=== PATIENT | female | born 1955 | race Caucasian/White ===

== ENCOUNTER → 2017-02-28 | Outpatient (CLI) | payer MEDICARE ==
[~2017-02-28] MED LIST: ATOR40TA PO; CPR500T PO; CYCL10TA9 PO; DICL75TA2 PO; DOCU100C37 PO; DOXY100C2 PO; EST30C VG; ESTR1TAB24 PO; GABA-488 PO; GABA600T2 PO; GABA800T2 PO; GLIP10TA23 PO; HYDR-3583 PO; INSU100I23 SQ; LEVE1U SQ; LISI1TAB6 PO; LOVA20TA2 PO; METF-380 PO; OMEP20TA2 PO; ORPH100T PO; OXYC-12 PO; OXYC-465 PO; PGLT30T PO; PREG150C PO; RABE20TA PO; SULF1TAB38 PO; TRAM100T2 PO; TRAM50TA2 PO
--- NOTE | 2017-03-01 10:52 | Diagnostic Imaging Report ---
Bilateral screening mammogram The current study was also evaluated with a Computer Aided Detection (CAD) system. Indication: Screening. No current complaints stated on the questionnaire. COMPARISON: 09/04/15 FINDINGS: The breasts are composed of scattered fibroglandular densities. There are scattered benign-appearing calcifications. Allowing for technique and positional differences, no suspicious change is seen. IMPRESSION: No significant change. ACR BI-RADS Category 2: Benign findings. Result letter will be mailed to the patient. Note: At least 10% of breast cancer is not imaged by mammography. Dictated by: Dictated on workstation # [id number]
== END ==
LOC: RAD 10:55
PROVIDERS: ATTEND Nurse Practitioner Family
DX: Z12.31 Encounter for screening mammogram for malignant neoplasm of breast (principal)
CPT/HCPCS: 77067

== ENCOUNTER 2017-03-24 05:56 | Outpatient (CLI) | payer MEDICARE ==
[~2017-03-24] VITALS: Ht 158.8 cm; Wt 92.1 kg
[2017-03-24] MEDS ORDERED: CYCL7.5T27 PO (13:49)
== END 2017-03-24 13:52 ==
LOC: PREOP 05:56
PROVIDERS: ATTEND Surgery
DX: Z01.818 Encounter for other preprocedural examination (principal); R11.0 Nausea; Z86.010 Personal history of colon polyps

== ENCOUNTER 2017-03-29 08:45 | Day surgery (SDC) | payer MEDICARE ==
[~2017-03-29] VITALS: Ht 158.8 cm; Wt 92.1 kg
[~2017-03-29 08:45] MED LIST changes: +CYCL7.5T27 PO
[2017-03-29] MEDS ORDERED: NS IV 1000 ML 1,000 ML IV STA (08:55)
[2017-03-29] MEDS ORDERED: NALOXONE 0.4 MG/ML 1 ML (NARCAN) VIAL IVP PRN (09:00)
[2017-03-29] MEDS ORDERED: FLUMAZENIL (ROMAZICON) 0.1 MG/ML 5 ML VIAL INJ PRN (09:00)
[2017-03-29 09:08] VITALS: BP 134/76
[2017-03-29] MEDS ORDERED: GLYCOPYRROLATE 0.2 MG/ML (ROBINUL) 2 ML VIAL ONE (09:08)
--- NOTE | 2017-03-29 09:19 | Progress Note-Pre Operative ---
Pre-Operative Progress Note H&P Reviewed The H&P was reviewed, patient examined and no changes noted. Date Seen by Provider: Mar 29, 2017 Time Seen by Provider: :18 Date H&P Reviewed: Mar 29, 2017 Time H&P Reviewed: :18 Pre-Operative Diagnosis: nausea, hiatal hernia, history of polyps AMISH GLEZ DO Mar 29, 2017 9:19 am
[2017-03-29] MEDS ORDERED: OMEG300C3 PO (09:35)
[2017-03-29] MEDS ORDERED: ALLERGY MED (09:35)
[2017-03-29] MEDS ORDERED: VIT D3 (09:35)
[2017-03-29] MEDS ORDERED: fentaNYL INJECTION 100 MCG/2 ML AMP ONE (09:40)
[2017-03-29] MEDS ORDERED: proPOfol 200 MG/20 ML (DIPRIVAN) VIAL IV ONE (09:40)
[2017-03-29] MEDS ORDERED: ESMOLOL 100 MG/10 ML (BREVIBLOC) VIAL ONE (10:02)
[2017-03-29] MEDS ORDERED: PANT40TA2 PO (10:37)
--- NOTE | 2017-03-29 10:37 | Progress Note-Post Operative ---
Post-Operative Progess Note Surgeon (s)/Equipment Operat0R (s) Surgeon AMISH GLEZ DO Equipment Operat0R: na Pre-Operative Diagnosis nausea, hiatal hernia, history of polyps Post-Operative Diagnosis gastritis, rectal polyps Procedure & Operative Findings Date of Procedure 03/29/17 Procedure Performed/Findings egd c biopsies, colonoscopy with hot bx polypectomy x 2 rectal Anesthesia Type per [employer] Estimated Blood Loss Estimated blood loss (mL): none Specimens/Packing Specimens Removed antrum, body stomach, rectal polyp x 2 AMISH GLEZ DO Mar 29, 2017 10:37 am
--- NOTE | 2017-03-29 10:40 | Discharge Inst-Simple/Standard ---
Discharge Inst-Standard Patient Instructions/Follow Up Plan of Care/Instructions/FU: Follow up with Dr. Menendez in 2 weeks WIll need repeat colonoscopy in 3 years or sooner if changes to current condition Take medication as directed. Hold on NSAIDS Activity as Tolerated: Yes Discharge Diet: No Restrictions LELAND GALLO APRN Mar 29, 2017 10:40
[2017-03-29 11:00] VITALS: BP 133/75
[2017-03-29 11:25] VITALS: BP 134/78
[2017-03-29 11:37] VITALS: BP 134/78
--- NOTE | 2017-03-29 16:05 | OPERATIVE REPORT ---
DATE OF SERVICE: 03/29/2017 PREOPERATIVE DIAGNOSES: Nausea, hiatal hernia and history of polyps. POSTOPERATIVE DIAGNOSES: Gastritis and rectal polyps. PROCEDURE: EGD with biopsies and colonoscopy with hot biopsy polypectomy x2 rectal. SURGEON: Amish Mneendez DO ANESTHESIA: Per MDA. ESTIMATED BLOOD LOSS: None. COMPLICATIONS: None. SPECIMENS: The antrum and body of stomach and rectal polyp x2. INDICATIONS: The patient is a 61-year-old female who has daily nausea. She also has history of colon polyps. She understands risks and benefits of procedures and wished to proceed with procedures. Consent was signed and in the chart. DESCRIPTION OF PROCEDURE: The patient was taken to the endoscopy suite, placed in left lateral recumbent position. Timeout was performed. Scope was inserted in mouth, down the esophagus, stomach and into the duodenum without difficulty. There were no polyps, masses or ulcerations within the duodenum. The scope was slowly retracted back into the stomach, where there were some erythematous changes and also some of the mucosa surface changes, which biopsies were obtained of the antrum and of the stomach of the body. Scope was retroflexed, noting no significant hiatal hernia. There were no polyps, masses or ulcerations. Scope was returned to its normal position, slowly withdrawn to the distal esophagus. There were no polyps, masses or ulcerations. The scope was slowly retracted back until completely removed, noting no other pathology. Digital rectal exam was performed and there were no palpable polyps, masses or ulcerations. Scope was then inserted in the rectum and advanced all the way to the cecum with minimal difficulty. Prep was adequate. Scope was then slowly retracted back. There were no polyps, masses or ulcerations in the cecum and ascending colon. Within the hepatic flexure, there was a small colonic lipoma present, smooth mucosa present. Scope was then continued slowly retracted back. There were no polyps, masses or ulcerations within the transverse colon, descending colon and sigmoid colon. In the rectum, there were 2 small polyps which hot biopsy polypectomy was performed. Scope was also retroflexed, noting no other pathology. Scope was returned to its normal position, slowly withdrawn until completely removed. RECOMMENDATIONS: Recommend following up in the office to go over pathology in 2-3 weeks. We will start the patient on Protonix and stop her omeprazole and diclofenac. Would avoid any NSAIDs. Would repeat colonoscopy in 3 years for reevaluation due to the colon polyps. If she has any problems prior to that, she should be reevaluated at that time. Job ID: [id number] DocumentID: [id number] Dictated Date: 03/29/2017 10:41:01 Drug Worker Date: 03/29/2017 16:04:26 Dictated By: AMISH MENENDEZ DO
== END 2017-03-29 11:35 | disposition home or self-care (01) ==
LOC: SDC 08:45
PROVIDERS: ATTEND Surgery
DX: Z12.11 Encounter for screening for malignant neoplasm of colon (principal); K62.1 Rectal polyp; K29.70 Gastritis, unspecified, without bleeding; D17.5 Benign lipomatous neoplasm of intra-abdominal organs; Z86.010 Personal history of colon polyps; E11.9 Type 2 diabetes mellitus without complications; I10 Essential (primary) hypertension; F17.210 Nicotine dependence, cigarettes, uncomplicated; Z79.4 Long term (current) use of insulin
CPT/HCPCS: 82962; 88305

== ENCOUNTER → 2019-10-19 | Outpatient (CLI) | payer MEDICARE ==
[~2019-10-19] MED LIST changes: +ALLERGY MED; -GABA600T2 PO; +GABA800T10 PO; -GABA800T2 PO; +GBPN600T PO; +OMEG300C3 PO; +PANT40TA2 PO; +VIT D3
[2019-10-19 13:26] LABS: BASOPHILS % (AUTO) 0 % (0-10); EOSINOPHILS # (AUTO) 0.3 10^3/uL (0.0-0.3); EOSINOPHILS % (AUTO) 4 % (0-10); HEMATOCRIT 36 % (35-52); HEMOGLOBIN 12.4 G/DL (11.5-16.0); LYMPHOCYTES % (AUTO) 29 % (12-44); MEAN CORPUSCULAR HEMOGLOBIN 29 PG (25-34); MEAN CORPUSCULAR HGB CONC 34 G/DL (32-36); MEAN CORPUSCULAR VOLUME 85 FL (80-99); MEAN PLATELET VOLUME 8.8 FL (7.4-10.4); MONOCYTES # (AUTO) 0.7 X 10^3 (0.0-1.0); MONOCYTES % (AUTO) 10 % (0-12); NEUTROPHILS # (AUTO) 3.9 X 10^3 (1.8-7.8); NEUTROPHILS % (AUTO) 57 % (42-75); PLATELET COUNT 236 10^3/uL (130-400); RED CELL DISTRIBUTION WIDTH 15.4 % (10.0-14.5)
[2019-10-19 13:47] LABS: ALANINE AMINOTRANSFERASE 24 U/L (0-55); ALKALINE PHOSPHATASE 76 U/L (40-136); BILIRUBIN,TOTAL 0.3 MG/DL (0.1-1.0); BUN/CREATININE RATIO 24; CALCIUM 9.3 MG/DL (8.5-10.1); CARBON DIOXIDE 19 MMOL/L (21-32); CHLORIDE 105 MMOL/L (98-107); CREATININE SERUM 0.72 MG/DL (0.60-1.30); GFR ESTIMATED > 60; GLUCOSE 213 MG/DL (70-105); POTASSIUM 4.7 MMOL/L (3.6-5.0); SODIUM 137 MMOL/L (135-145); TOTAL PROTEIN 6.2 GM/DL (6.4-8.2)
[2019-10-19 13:58] LABS: ANISOCYTOSIS SLIGHT; BAND NEUTROPHILS 2 %; BASOPHILS % (MANUAL) 0 %; EOSINOPHILS % (MANUAL) 6 %; LYMPHOCYTES % (MANUAL) 26 %; MONOCYTES % (MANUAL) 9 %; NEUTROPHILS % (MANUAL) 57 %
== END ==
LOC: LAB 12:56
PROVIDERS: ATTEND Internal Medicine Hematology & Oncology
DX: C82.95 Follicular lymphoma, unspecified, lymph nodes of inguinal region and lower limb (principal); D70.1 Agranulocytosis secondary to cancer chemotherapy; T45.1X5A Adverse effect of antineoplastic and immunosuppressive drugs, initial encounter
CPT/HCPCS: 36415; 80053; 83615; 85007; 85027

== ENCOUNTER 2021-12-01 23:40 | Emergency (ER) | payer MEDICARE ==
[~2021-12-01] VITALS: Ht 157.5 cm; Wt 89.4 kg
[~2021-12-01 23:40] MED LIST changes: +LISI1TAB44 PO; -LISI1TAB6 PO; -OXYC-465 PO; +OXYC-556 PO
[2021-12-02 00:16] LABS: BASOPHILS % (AUTO) 0 % (0-10); MEAN CORPUSCULAR VOLUME 104 fL (80-99); MONOCYTES # (AUTO) 0.7 10^3/uL (0.0-1.0)
[2021-12-02 00:18] LABS: EOSINOPHILS # (AUTO) 0.1 10^3/uL (0.0-0.3); EOSINOPHILS % (AUTO) 1 % (0-10); HEMATOCRIT 27 % (35-52); HEMOGLOBIN 9.1 g/dL (11.5-16.0); LYMPHOCYTES # (AUTO) 2.7 10^3/uL (1.0-4.0); LYMPHOCYTES % (AUTO) 27 % (12-44); MEAN CORPUSCULAR HEMOGLOBIN 35 pg (25-34); MEAN CORPUSCULAR HGB CONC 34 g/dL (32-36); MEAN PLATELET VOLUME 9.7 fL (9.0-12.2); MONOCYTES % (AUTO) 7 % (0-12); NEUTROPHILS # (AUTO) 6.5 10^3/uL (1.8-7.8); NEUTROPHILS % (AUTO) 64 % (42-75); PLATELET COUNT 124 10^3/uL (130-400); WHITE BLOOD COUNT 10.2 10^3/uL (4.3-11.0)
[2021-12-02 00:31] LABS: ALBUMIN 4.4 GM/DL (3.2-4.5); CHLORIDE 106 MMOL/L (98-107); POTASSIUM 3.5 MMOL/L (3.6-5.0); SODIUM 142 MMOL/L (135-145)
[2021-12-02 00:33] LABS: CALCIUM 9.7 MG/DL (8.5-10.1)
[2021-12-02 00:34] LABS: GLUCOSE 85 MG/DL (70-105); TOTAL PROTEIN 7.1 GM/DL (6.4-8.2)
[2021-12-02 00:35] LABS: CARBON DIOXIDE 23 MMOL/L (21-32)
[2021-12-02 00:36] LABS: BILIRUBIN,TOTAL 0.4 MG/DL (0.1-1.0)
[2021-12-02 00:37] LABS: ALKALINE PHOSPHATASE 100 U/L (40-136); GFR ESTIMATED 33
[2021-12-02 00:38] LABS: BUN/CREATININE RATIO 14
[2021-12-02 00:40] LABS: ALANINE AMINOTRANSFERASE 47 U/L (0-55); MAGNESIUM 2.1 MG/DL (1.6-2.4)
[2021-12-02 00:41] LABS: CREATINE KINASE 31 U/L (29-168)
[2021-12-02] MEDS ORDERED: RT-ALBUTEROL/IPRATROPIUM 3 ML (DUONEB) VIAL INH ONE (00:45)
[2021-12-02] MEDS ORDERED: RT-BUDESONIDE NEBS 0.5 MG/2ML (PULMICORT) AMP INH ONE (00:45)
[2021-12-02] MEDS ORDERED: methylPREDNISolone 125 MG (Solu-MEDROL) VIAL IV STA (00:45)
[2021-12-02 00:48] LABS: CREATINE KINASE MB 1.4 NG/ML (<6.6)
[2021-12-02 00:59] LABS: AMYLASE 43 U/L (25-125); ERYTHROCYTE SEDIMENTATION RATE 98 MM/HR (0-30)
[2021-12-02 01:08] LABS: LIPASE 21 U/L (8-78)
[2021-12-02 01:13] LABS: ABG BASE EXCESS 1.2 MMOL/L (-2.5-2.5); ABG OXYGEN SATURATION 97 % (94-100); ABG PCO2 40 MMHG (35-45); ABG PH 7.42 (7.37-7.43); ABG PO2 81 MMHG (79-93); ABG TCO2 26.5 MMOL/L (21.0-31.0)
[2021-12-02 01:14] LABS: ALLENS TEST YES-POS; INSPIRED O2 ROOM AIR; PATIENT TEMP 36.8; VENTILATOR NO
--- NOTE | 2021-12-02 01:23 | ED General ---
General Chief Complaint: Respiratory Problems Stated Complaint: SOB Nursing Triage Note: BROUGHT IN BY [facility] FOR INCREASED SOA TONIGHT. Source of Information: Patient (SOMEWHAT LIMITED HISTORIAN), EMS History of Present Illness Date Seen by Provider: Dec 01, 2021 Time Seen by Provider: 23:40 Initial Comments PT ARRIVES VIA EMS FROM HOME C/O SHORTNESS OF BREATH SINCE THIS MORNING PT HAS COPD, AND WEARS HOME O2 AT 2L/NC AT BEDTIME ONLY. PT CONTINUES TO SMOKE 1 PPD PT STATES SHE HAD A NEBULIZER TREATMENT AN HOUR OR TWO AGO C/O COUGH NO KNOWN FEVER NO HEADACHE NO BODY ACHES JUST PRIOR TO ARRIVAL, SHE BEGAN HAVING NAUSEA AND DIARRHEA. NO CHEST PAIN NO PAIN WITH BREATHING NO SWELLING TO LEGS/FEET OR PAIN IN CALVES PT HAS RECEIVED COVID-19 VACCINE X 3, WELL FLU VACCINE FOR THIS SEASON PT ALSO HAS HISTORY OF DIABETES, CAD WITH STENTS, LYMPHOMA--PT REPORTS IS CURRENTLY IN REMISSION, SHE ALSO HAS CHRONIC RENAL DISEASE--NO DIALYSIS. PCP: IN [place], [place] SHE LIVES HERE PART OF THE TIME, AND HAS BEEN ESTABLISHED WITH [facility] IN THE PAST, BUT HAS NOT BEEN THERE FOR A COUPLE OF YEARS. Allergies and Home Medications Allergies Coded Allergies: Penicillins (Unverified Allergy, Severe, SOA, 03/24/17) liraglutide (Verified Allergy, Unknown, NAUSEA, 03/24/17) pneumococcal vaccine (Verified Allergy, Unknown, ARM SWELLED, 03/24/17) Patient Home Medication List Home Medication List Reviewed: Yes Budesonide (Pulmicort) 1 Mg/2 Ml Ampul.neb, 1 MG IH BID Prescribed by: ISABELLA ALFARO on 12/02/21 0225 Cyclobenzaprine HCl (Cyclobenzaprine HCl) 7.5 Mg Tablet, 7.5 MG PO BID, (Reported) Entered as Reported by: JERONIMO COLE on 03/24/17 1349 Gabapentin (Gabapentin) 600 Mg Tablet, 600 MG PO TID, (Reported) Entered as Reported by: FAWAD LUTZ on 10/29/15 1517 Gabapentin (Gabapentin) 800 Mg Tablet, 800 MG PO HS, (Reported) Entered as Reported by: FAWAD LUTZ on 10/29/15 1517 Insulin Determir (Levemir Pen) 100 U/Ml Insuln.pen, 30 UNITS SQ HS, (Reported) Entered as Reported by: YA HARVEY on 10/25/11 1445 Insulin Lispro (Humalog Kwikpen) 100 Unit/1 Ml Insuln.pen, 15 UNIT SQ TIDAC, (Reported) Entered as Reported by: FAWAD LUTZ on 10/29/15 1517 L. Acidophilus/Pectin, Bird-In-Hand (Acidophilus Capsule) 1 Each Capsule, 2 EACH PO QID Prescribed by: ISABELLA ALFARO on 12/02/21224 Lisinopril/Hydrochlorothiazide (Lisinopril-Hctz 10-12.5 mg Tab) 1 Each Tablet, 0.5 EACH PO DAILY, (Reported) Entered as Reported by: FAWAD LUTZ on 10/29/151516 Lovastatin (Lovastatin) 20 Mg Tablet, 20 MG PO DAILY, (Reported) Entered as Reported by: FAWAD LUTZ on 10/29/15 151 Metformin Hcl (Metformin 1000 Mg) 1,000 Mg Tablet, 1,000 MG PO BID WITH MEALS, (Reported) Entered as Reported by: YA HARVEY on 10/25/11 144 Methylprednisolone (Medrol) 4 Mg Tab.ds.pk, 4 MG PO UD Prescribed by: ISABELLA ALFARO on 12/02/21226 [place]-3 Fatty Acids (Fish Oil) 300 Mg Capsule, 300 MG PO DAILY, (Reported) Entered as Reported by: SUPRIYA NASH on 03/29/17934 Ondansetron (Ondansetron Odt) 8 Mg Tab.rapdis, 8 MG PO Q6H Prescribed by: ISABELLA ALFARO on 12/02/21224 Pantoprazole Sodium (Protonix) 40 Mg Tablet.dr, 40 MG PO DAILY Prescribed by: LELAND MERAZ [facility] on 03/29/17 1037 Tramadol Hcl (Tramadol Hcl) 50 Mg Tablet, 50 MG PO TID PRN for PAIN, (Reported) Entered as Reported by: FAWAD LUTZ on 12/13/13 0918 [Allergy Med] , (Reported) Entered as Reported by: SUPRIYA NASH on 03/29/17 09 [Vit D3] , (Reported) Entered as Reported by: SUPRIYA NASH on 03/29/17934 Review of Systems Review of Systems Constitutional: no symptoms reported; No fever EENTM: no symptoms reported Respiratory: see HPI, cough, short of breath Cardiovascular: no symptoms reported; No chest pain, No edema, No palpitations, No syncope Gastrointestinal: see HPI; No abdominal pain; diarrhea, nausea Genitourinary: no symptoms reported Musculoskeletal: no symptoms reported Skin: no symptoms reported Psychiatric/Neurological: No Symptoms Reported Hematologic/Lymphatic: No Symptoms Reported Immunological/Allergic: no symptoms reported Past Vcjufjh-Lcfndf-Kboblp Hx Patient Social History Tobacco Use?: Yes (1 PPD) Tobacco type used: Cigarettes Smoking Status: Current Everyday Smoker Substance use?: No Alcohol Use?: No Pt feels they are or have been: No Immunizations Up To Date Influenza Vaccine Up-to-Date: Yes; Up-to-Date First/Initial COVID19 Vaccinat: 12/07 Second COVID19 Vaccination Chad: 01/04 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: [employer] Seasonal Allergies Seasonal Allergies: Yes Past Medical History Surgery/Hospitalization HX: CARDIAC STENTS, HOME O2 AT HS, COPD, DM, LYMPHOMA Surgeries: Yes (BACK SURGERY X 3; EGD/COLONOSCOPIES;CARDIAC CATHS/STENTS;PORT L CHEST) Cardiac, Coronary Stent, Hysterectomy, Orthopedic Respiratory: Yes (O2 AT HS) COPD Cardiac: Yes (STENTS) Coronary Artery Disease, High Cholesterol, Hypertension Neurological: No 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, 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 Sexually Transmitted Disease: No HIV/AIDS: No Genitourinary: Yes (RENAL DISEASE--NO DIALYSIS) Renal Failure Gastrointestinal: Yes Gastroesophageal Reflux, Polyps Musculoskeletal: Yes (BACK SURGERY X 3) Arthritis, Chronic Back Pain Endocrine: Yes Diabetes, Insulin dep HEENT: No Loss of Vision: Bilateral Hearing Impairment: Denies Cancer: Yes Lymphoma Did You Recieve Any Treatments: Yes What Type of Treatment Did You: Chemotherapy Psychosocial: Yes Depression Integumentary: No Blood Disorders: Yes (ANEMIA) Adverse Reaction/Blood Tranf: No (N/A) Family Medical History Arthritis 19 FATHER 19 MOTHER G8 BROTHER G8 SISTER Cardiovascular disease 19 FATHER 19 MOTHER Completed stroke 19 MOTHER Diabetes mellitus 19 MOTHER G8 BROTHER G8 SISTER FH: cancer 19 MOTHER (CERVICAL) Hypertension 19 FATHER 19 MOTHER G8 BROTHER G8 SISTER Myocardial infarction 19 FATHER Physical Exam Vital Signs Vital Signs - First Documented 12/01/21 23:40 Temp 36.8 Pulse 113 Resp 18 B/P (MAP) 112/56 (74) Pulse Ox 95 O2 Delivery Room Air O2 Flow Rate 2.00 Capillary Refill : Less Than 3 Seconds Height, Weight, BMI Height: 5'2.50" Weight: 203lbs. 0.0oz. 92.160958ut; 36.00 BMI Method:Stated General Appearance: No Apparent Distress, WD/WN, Obese, Other (REEKS OF CIGARETTES) HEENT: Normal ENT Inspection Neck: Normal Inspection Respiratory: No Accessory Muscle Use, No Respiratory Distress, Wheezing (MILD DIFFUSE EXPIRATORY WHEEZING BILATERALLY. 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 Norm as Tested Skin: Normal Color, Warm/Dry Focused Exam Lactate Level 12/02/21 00:00: Lactic Acid Level 1.57 Lactic Acid Level Laboratory Tests Test 12/02/21 00:00 Lactic Acid Level 1.57 MMOL/L (0.50-2.00) Progress/Results/Core Measures Suspected Sepsis SIRS Temperature: Pulse: 113 Respiratory Rate: 18 Laboratory Tests 12/02/21 00:00: White Blood Count 10.2 Blood Pressure 112 /56 Mean: 74 12/02/21 00:00: Lactic Acid Level 1.57 Laboratory Tests 12/02/21 00:00: Creatinine 1.70H, Platelet Count 124L, Total Bilirubin 0.4 12/02/21 01:15: INR Comment 1.0 Results/Orders Lab Results Laboratory Tests Test 12/02/21 00:00 12/02/21 00:03 12/02/21 01:08 12/02/21 01:15 Range/Units White Blood Count 10.2 4.3-11.0 10^3/uL Red Blood Count 2.59 L 3.80-5.11 10^6/uL Hemoglobin 9.1 L 11.5-16.0 g/dL Hematocrit 27 L 35-52 % Mean Corpuscular Volume 104 H 80-99 fL Mean Corpuscular Hemoglobin 35 H 25-34 pg Mean Corpuscular Hemoglobin Concent 34 32-36 g/dL Red Cell Distribution Width 14.6 H 10.0-14.5 % Platelet Count 124 L 130-400 10^3/uL Mean Platelet Volume 9.7 9.0-12.2 fL Immature Granulocyte % (Auto) 1 % Neutrophils (%) (Auto) 64 42-75 % Lymphocytes (%) (Auto) 27 12-44 % Monocytes (%) (Auto) 7 0-12 % Eosinophils (%) (Auto) 1 0-10 % Basophils (%) (Auto) 0 0-10 % Neutrophils # (Auto) 6.5 1.8-7.8 10^3/uL Lymphocytes # (Auto) 2.7 1.0-4.0 10^3/uL Monocytes # (Auto) 0.7 0.0-1.0 10^3/uL Eosinophils # (Auto) 0.1 0.0-0.3 10^3/uL Basophils # (Auto) 0.0 0.0-0.1 10^3/uL Immature Granulocyte # (Auto) 0.1 0.0-0.1 10^3/uL Percent Immature Platelet Fraction 3.9 0.0-7.6 % Erythrocyte Sedimentation Rate 98 H 0-30 MM/HR Sodium Level 142 135-145 MMOL/L Potassium Level 3.5 L 3.6-5.0 MMOL/L Chloride Level 106 98-107 MMOL/L Carbon Dioxide Level 23 21-32 MMOL/L Anion Gap 13 5-14 MMOL/L Blood Urea Nitrogen 23 H 7-18 MG/DL Creatinine 1.70 H 0.60-1.30 MG/DL Estimat Glomerular Filtration Rate 33 BUN/Creatinine Ratio 14 Glucose Level 85 70-105 MG/DL Lactic Acid Level 1.57 0.50-2.00 MMOL/L Calcium Level 9.7 8.5-10.1 MG/DL Corrected Calcium 9.4 8.5-10.1 MG/DL Magnesium Level 2.1 1.6-2.4 MG/DL Total Bilirubin 0.4 0.1-1.0 MG/DL Aspartate Amino Transf (AST/SGOT) 31 5-34 U/L Alanine Aminotransferase (ALT/SGPT) 47 0-55 U/L Alkaline Phosphatase 100 40-136 U/L Total Creatine Kinase 31 29-168 U/L Creatine Kinase MB 1.4 <6.6 NG/ML Troponin I < 0.028 <0.028 NG/ML C-Reactive Protein High Sensitivity 1.26 H 0.00-0.50 MG/DL B-Type Natriuretic Peptide 47.0 <100.0 PG/ML Total Protein 7.1 6.4-8.2 GM/DL Albumin 4.4 3.2-4.5 GM/DL Amylase Level 43 25-125 U/L Lipase 21 8-78 U/L Procalcitonin 0.07 <0.10 NG/ML Influenza Type A (RT-PCR) Not Detected Not Detecte Influenza Type B (RT-PCR) Not Detected Not Detecte SARS-CoV-2 RNA (RT-PCR) Not Detected Not Detecte Blood Gas Puncture Site LRAD Blood Gas Patient Temperature 36.8 Arterial Blood pH 7.42 7.37-7.43 Arterial Blood Partial Pressure CO2 40 35-45 MMHG Arterial Blood Partial Pressure O2 81 79-93 MMHG Arterial Blood HCO3 25 23-27 MMOL/L Arterial Blood Total CO2 26.5 21.0-31.0 MMOL/L Arterial Blood Oxygen Saturation 97 94-100 % Arterial Blood Base Excess 1.2 -2.5-2.5 MMOL/L Eulogio Test YES-POS Blood Gas Ventilator Setting NO Blood Gas Inspired Oxygen ROOM AIR Prothrombin Time 13.2 12.2-14.7 SEC INR Comment 1.0 0.8-1.4 Activated Partial Thromboplast Time 31 24-35 SEC D-Dimer 0.41 0.00-0.49 UG/ML Test 12/02/21 01:24 Range/Units Blood Gas Puncture Site LRAD Blood Gas Patient Temperature 36.8 Arterial Blood pH 7.39 7.37-7.43 Arterial Blood Partial Pressure CO2 42 35-45 MMHG Arterial Blood Partial Pressure O2 72 L 79-93 MMHG Arterial Blood HCO3 24 23-27 MMOL/L Arterial Blood Total CO2 25.7 21.0-31.0 MMOL/L Arterial Blood Oxygen Saturation 96 94-100 % Arterial Blood Base Excess 0.0 -2.5-2.5 MMOL/L Eulogio Test YES-POS Blood Gas Ventilator Setting NO Blood Gas Inspired Oxygen 2L My Orders Orders - ISABELLA ALFARO DO Ed Iv/Invasive Line Start (12/01/21 23:45) Ekg Tracing (12/01/21 23:45) O2 (12/01/21:45) Monitor-Rhythm Ecg Trace Only (12/01/21:45) Bnp Faulk (12/01/21:45) Cbc With Automated Diff (12/01/21:45) Comprehensive Metabolic Panel (12/01/21:45) Creatine Kinase (12/01/21:45) Creatine Kinase Mb (12/01/21:45) Hs C Reactive Protein (12/01/21:45) Fibrin Degradation Products (12/01/21:45) Lactic Acid Analyzer (12/01/21:45) Magnesium (12/01/21:45) Procalcitonin (Pct) (12/01/21:45) Protime With Inr (12/01/21:45) Partial Thromboplastin Time (12/01/21:45) Blood Culture (12/01/21:45) Erythrocyte Sedimentation Rate (12/01/21:45) Troponin I Faulk (12/01/21 23:45) Chest 1 View, Ap/Pa Only (12/01/21:45) Covid 19 Inhouse Test (12/01/21:45) Influenza A And B By Pcr (12/01/21:45) Isolation Central Supply Req (12/01/21:45) Albuterol/Ipra Inhalation Soln (Duoneb I (12/02/21 00:45) Budesonide Inhalation Solution (Pulmicor (12/02/21 00:45) Methylprednisolone Sod Succ (Solu-Medrol (12/02/21 00:45) Svn Small Volume Nebulizer (12/02/21 00:45) Svn Small Volume Nebulizer (12/02/21 00:45) Ct Chest/Abdomen/Pelvis Wo (12/02/21 00:45) Arterial Blood Gas (12/02/21 00:49) Amylase (12/02/21 00:49) Lipase (12/02/21 00:49) Arterial Blood Gas (12/02/21 01:24) Medications Given in ED Current Medications Medications Dose Ordered Sig/Steven Route Start Time Stop Time Status Last Admin Dose Admin Albuterol/ Ipratropium 3 ml ONCE ONCE INH 12/02/21 00:45 12/02/21 00:49 DC 12/02/21 01:12 3 ML Budesonide 0.5 mg ONCE ONCE INH 12/02/21 00:45 12/02/21 00:49 DC 12/02/21 01:12 0.5 MG Vital Signs/I&O 12/01/21 12/01/21 12/02/21 12/02/21 23:40 23:40 01:13 02:31 Temp 36.8 36.5 Pulse 113 95 Resp 18 18 B/P (MAP) 112/56 (74) 123/67 Pulse Ox 95 100 98 O2 Delivery Room Air Nasal Cannula Nasal Cannula Room Air O2 Flow Rate 2.00 2.00 Capillary Refill : Less Than 3 Seconds Blood Pressure Mean: 74 Progress Note : Progress Note INITIAL O2 SATS 93% ON ROOM AIR, THEN LATER DROPPED TO 89-92% ( BUT PT DID NOT C/O SHORTNESS OF BREATH) , AND PLACED ON O2 AT 3L/NC AND SATS UP TO 97% PT WAS GIVEN DUONEB AND PULMICORT NEB TREATMENT, AND GIVEN IV SOLU-MEDROL PT HAD LARGE LOOSE BM SHORTLY AFTER ARRIVAL AND URINATED AT THE SAME TIME. UNABLE TO OBTAIN SEPARATE URINE AND STOOL SPECIMENS TO SEND TO LAB. NO DETERIORATION IN PT'S CONDITION DURING ER STAY PT HAD NO COMPLAINTS OF DYSPNEA AT ANY TIME DURING ER STAY NO COMPLAINTS OF ANY KIND FOR REMAINDER OF ER STAY ECG Initial ECG Impression Date: Dec 02, 2021 Initial ECG Impression Time: 00:15 Initial ECG Rate: 107 Initial ECG Rhythm: S.Tach Initial ECG Impression: Nonspecific Changes Diagnostic Imaging Comments CXR--SUBTLE ASYMMETRIC SUBSEGMENTAL OPACITY ADJACENT TO CARDIAC APEX IN LEFT LOWER LUNG, POSSIBLY ATELECTASIS OR SCARRING. PER [facility] VIA FAX AT 0026 CT CHEST/ABDOMEN/PELVIS--NO ACUTE PROCESS, PER [facility] VIA FAX AT [id number] Reviewed: Reviewed by Me Departure Impression Primary Impression: COPD exacerbation Additional Impressions: Gastroenteritis Anemia Renal insufficiency Disposition: HOME, SELF-CARE Condition: Improved Departure-Patient Inst. Decision time for Depature: 02:20 Referrals: [facility] Patient Instructions: Exacerbation of COPD, Viral Gastroenteritis, Chronic Kidney Disease, Anemia, Possibly From Low Iron, Adult ED Add. Discharge Instructions: LOTS OF CLEAR LIQUIDS--WATER, BROTH, JELLO, GATORADE BRATS DIET--BANANAS, RICE, APPLESAUCE, TOAST, SALTINES CONTINUE YOUR REGULAR MEDICATIONS PRESCRIBED USE YOUR ALBUTEROL NEBULIZER EVERY 4 HOURS NEEDED USE THE NEW PULMICORT IN YOUR NEBULIZER TWICE A DAY EVERY DAY WEAR HOME O2 AT 2L CONTINUOUSLY FOLLOW UP WITH YOUR PCP OR LOCAL DR OF CHOICE THIS WEEK FOR FURTHER CARE, RETURN TO ER IF WORSE All discharge instructions reviewed with patient and/or family. Voiced understanding. Scripts Methylprednisolone (Medrol) 4 Mg Tab.ds.pk 4 MG PO UD for 6 Days, #21 PKG PER DOSE PACK INSTRUCTIONS Prov: ISABELLA ALFARO DO 12/02/21 L. Acidophilus/Pectin, Bird-In-Hand (Acidophilus Capsule) 1 Each Capsule 2 EACH PO QID, #40 CAP Prov: ISABELLA ALFARO DO 12/02/21 Ondansetron (Ondansetron Odt) 8 Mg Tab.rapdis 8 MG PO Q6H, #10 TAB Prov: ISABELLA ALFARO DO 12/02/21 Budesonide (Pulmicort) 1 Mg/2 Ml Ampul.neb 1 MG IH BID, #1 EA Prov: ISABELLA ALFARO DO 12/02/21 ISABELAL ALFARO DO Dec 02, 2021 01:23
[2021-12-02 01:32] LABS: ABG OXYGEN SATURATION 96 % (94-100); ABG PCO2 42 MMHG (35-45); ABG PH 7.39 (7.37-7.43); ABG PO2 72 MMHG (79-93); ABG TCO2 25.7 MMOL/L (21.0-31.0); ALLENS TEST YES-POS; INSPIRED O2 2L; PATIENT TEMP 36.8; VENTILATOR NO
[2021-12-02 01:37] LABS: FIBRIN DEGRADATION PRODUCTS 0.41 UG/ML (0.00-0.49); PROTHROMBIN TIME PATIENT 13.2 SEC (12.2-14.7)
[2021-12-02] MEDS ORDERED: PANT40TA2 PO (02:25)
[2021-12-02] MEDS ORDERED: L. A1CAP11 PO (02:25)
[2021-12-02] MEDS ORDERED: BUDE1AMP IH (02:25)
[2021-12-02] MEDS ORDERED: ONDA8TAB13 PO (02:25)
[2021-12-02] MEDS ORDERED: METH4TAB PO (02:27)
[2021-12-02 02:31] VITALS: BP 123/67
--- NOTE | 2021-12-02 06:59 | Diagnostic Imaging Report ---
Indication: Dyspnea. FINDINGS: Portable chest. The lungs are well-aerated and clear. There is a central Port-A-Cath on the left. Tip is at cavoatrial junction. The lungs are well-aerated and clear. No pneumothorax or pleural effusion. IMPRESSION: 1. Port-A-Cath in good position. No abnormalities noted. Dictated by: Dictated on workstation # [id number]
--- NOTE | 2021-12-02 07:24 | Diagnostic Imaging Report ---
EXAMINATION: CT chest, abdomen and pelvis without intravenous contrast. TECHNIQUE: Multiple contiguous axial images were obtained through the chest, abdomen and pelvis without intravenous contrast. All CT scans use one or more of the following dose optimizing techniques: automated exposure control, MA and/or KvP adjustment based on patient size and exam type or iterative reconstruction. HISTORY: Abdominal pain, shortness of breath. COMPARISON: None available. FINDINGS: There is no edema or pneumonia. No pleural effusion. No pneumothorax. No suspicious nodules. There is no axillary or supraclavicular lymphadenopathy. There is no mediastinal lymphadenopathy. Left-sided portacatheter is present. Heart size is normal. There are moderate coronary artery calcifications. No pericardial effusion. Aorta is normal in caliber. The liver is normal without focal lesion. There is no biliary ductal dilation. Gallbladder is surgically absent. Pancreas is normal. Spleen is normal. Adrenal glands are normal. The kidneys are normal. There is no hydronephrosis. Urinary bladder is normal. Bowel is normal in caliber without obstruction or inflammation. Liquid contents in the large bowel may represent a diarrheal illness. The left common and external iliac veins. There is a fat-containing umbilical hernia. No free fluid or air. No abdominal or pelvic lymphadenopathy. Aorta is normal in caliber without aneurysm. There are no suspicious osseous lesions. There has been a lumbar spine fusion. IMPRESSION: 1. No acute abnormality in the chest. 2. Liquid stool in the colon may reflect a diarrheal illness. Dictated by: Dictated on workstation # [id number]
== END 2021-12-02 02:38 | disposition home or self-care (01) ==
LOC: EDUNIT# 23:40 → ER 23:41
DX: J44.1 Chronic obstructive pulmonary disease with (acute) exacerbation (principal); K52.9 Noninfective gastroenteritis and colitis, unspecified; D64.9 Anemia, unspecified; N28.9 Disorder of kidney and ureter, unspecified; I10 Essential (primary) hypertension; E11.9 Type 2 diabetes mellitus without complications; I25.10 Atherosclerotic heart disease of native coronary artery without angina pectoris; E78.00 Pure hypercholesterolemia, unspecified; F32.A Depression, unspecified; K21.9 Gastro-esophageal reflux disease without esophagitis; G89.29 Other chronic pain; M54.9 Dorsalgia, unspecified; E66.9 Obesity, unspecified; F17.210 Nicotine dependence, cigarettes, uncomplicated; Z68.36 Body mass index [BMI] 36.0-36.9, adult; Z95.5 Presence of coronary angioplasty implant and graft; Z79.4 Long term (current) use of insulin; Z79.84 Long term (current) use of oral hypoglycemic drugs; Z79.891 Long term (current) use of opiate analgesic; Z79.899 Other long term (current) drug therapy; Z20.822 Contact with and (suspected) exposure to COVID-19
CPT/HCPCS: 36415; 71045; 71250; 74176; 80053; 82150; 82550; 82553; 82805; 83605; 83690; 83735; 83880; 84145; 84484; 85025; 85379; 85610; 85652; 85730; 86141; 87040; 87636; 93005; 93041; 94640

== ENCOUNTER → 2022-05-21 | Outpatient (CLI) | payer MEDICARE, OTHER ==
[~2022-05-21] MED LIST changes: +BUDE1AMP IH; +L. A1CAP11 PO; +METH4TAB PO; +ONDA8TAB13 PO
[2022-05-21 15:21] LABS: POTASSIUM 4.2 MMOL/L (3.6-5.0)
[2022-05-21 15:23] LABS: CALCIUM 9.3 MG/DL (8.5-10.1)
[2022-05-21 15:24] LABS: TOTAL PROTEIN 6.2 GM/DL (6.4-8.2)
[2022-05-21 15:25] LABS: BILIRUBIN,TOTAL 0.4 MG/DL (0.1-1.0)
[2022-05-21 15:27] LABS: BASOPHILS % (AUTO) 0 % (0-10); CREATININE SERUM 2.01 MG/DL (0.60-1.30); EOSINOPHILS # (AUTO) 0.1 10^3/uL (0.0-0.3); EOSINOPHILS % (AUTO) 3 % (0-10); HEMATOCRIT 23 % (35-52); HEMOGLOBIN 8.1 g/dL (11.5-16.0); LYMPHOCYTES # (AUTO) 1.7 X 10^3 (1.0-4.0); LYMPHOCYTES % (AUTO) 33 % (12-44); MEAN CORPUSCULAR HEMOGLOBIN 34 pg (25-34); MEAN CORPUSCULAR HGB CONC 35 g/dL (32-36); MEAN CORPUSCULAR VOLUME 97 fL (80-99); MEAN PLATELET VOLUME 9.7 fL (9.0-12.2); MONOCYTES # (AUTO) 0.3 X 10^3 (0.0-1.0); MONOCYTES % (AUTO) 7 % (0-12); NEUTROPHILS # (AUTO) 2.9 X 10^3 (1.8-7.8); NEUTROPHILS % (AUTO) 57 % (42-75); PLATELET COUNT 110 10^3/uL (130-400); WHITE BLOOD COUNT 5.1 10^3/uL (4.3-11.0)
== END ==
LOC: LAB 14:51
DX: N18.9 Chronic kidney disease, unspecified (principal); D63.1 Anemia in chronic kidney disease
CPT/HCPCS: 36415; 80053; 85025

== ENCOUNTER → 2022-11-09 | Outpatient (CLI) | payer MEDICARE, OTHER ==
--- NOTE | 2022-11-09 12:27 | Diagnostic Imaging Report ---
PROCEDURE: MRI lumbar spine. TECHNIQUE: Multiplanar, multisequence MRI of the lumbar spine was performed without contrast. INDICATION: Chronic low back pain. Recent exacerbation. COMPARISON: CT abdomen and pelvis dated 12/02/2021. FINDINGS: The patient is status post previous laminectomy and posterior fusion at L4-L5. Evaluation of the integrity of the hardware is suboptimal given MR modality and metallic susceptibility artifact. There is mild grade 1 anterolisthesis at L4-L5 which is stable compared to previous CT dated 12/02/2021. There is no evidence of jumped facets. The vertebral body heights are maintained. There is no acute fracture. Evaluation of the marrow signal demonstrates Modic type II change of the adjacent endplates at the L4-L5 level. There is also mild generalized diffuse marrow signal heterogeneity. Note is also made of multilevel intervertebral disc height loss with multilevel anterior and posterior disc bulges. The visualized portions of the distal cord are unremarkable. The conus terminates at approximately the L1-L2 level. No abnormal intrathecal filling defects are seen. Evaluation of the pre and paravertebral soft tissue structures demonstrates multiple enlarged retroperitoneal lymph nodes. A reference lymph node on the left measures 2.2 x 1.8 cm (image 23, series 6). Axial images demonstrate the following: T11-T12 through L1-L2: There is no large disc bulge or focal protrusion. There is mild bilateral ligamentum flavum laxity and facet arthropathy but no significant spinal canal or neuroforaminal stenosis. L2-L3: There is broad-based posterior disc bulge, bilateral ligamentum flavum laxity, and facet arthropathy. As a result, there is mild to moderate narrowing of the spinal canal. There is also mild narrowing of the left neuroforamen and moderate narrowing on the right. L3-L4: There is a broad-based posterior disc bulge, bilateral ligamentum flavum laxity, and facet arthropathy. As a result, there is mild to moderate narrowing of the spinal canal. There is also moderate narrowing of the left neuroforamen and moderate to severe narrowing on the right. L4-L5: Post surgical changes as above. There is no significant spinal canal stenosis. There is moderate to severe bilateral neuroforaminal narrowing. L5-S1: There is no large disc bulge or focal protrusion. There is no significant spinal canal or neuroforaminal stenosis. IMPRESSION: 1. Multilevel degenerative changes of the lumbar spine, greatest at the L2-L3 and L3-L4 levels as above. 2. Post surgical changes of previous laminectomy and posterior fusion at the L4-L5 levels. Again, evaluation of the integrity of the hardware cannot be adequately assessed due to MR modality and metallic susceptibility artifact but static alignment is stable compared to the previous CT dated 12/02/2021. 3. Multiple abnormally enlarged retroperitoneal lymph nodes. Findings are concerning for metastatic disease although a primary lymphoproliferative disorder such as lymphoma is also a consideration. 4. No acute fracture or dislocation of the lumbar spine. 5. Mild diffuse marrow signal heterogeneity which may be on the basis of marrow conversion. An underlying infiltrative marrow process is also within the differential. 6. The report was called and faxed to Padma in the office of Oksana Waterman APRN, by [email or web address]@12:26 PM. Dictated by: Dictated on workstation # [id number]
== END ==
LOC: RAD 10:20
PROVIDERS: ATTEND Nurse Practitioner Family
DX: M51.16 Intervertebral disc disorders with radiculopathy, lumbar region (principal); M47.26 Other spondylosis with radiculopathy, lumbar region; C82.90 Follicular lymphoma, unspecified, unspecified site; G89.4 Chronic pain syndrome; G60.0 Hereditary motor and sensory neuropathy; E78.5 Hyperlipidemia, unspecified; J01.80 Other acute sinusitis; H60.393 Other infective otitis externa, bilateral; M13.80 Other specified arthritis, unspecified site; M25.551 Pain in right hip; Z20.822 Contact with and (suspected) exposure to COVID-19; Z98.1 Arthrodesis status
CPT/HCPCS: 72148

== ENCOUNTER 2022-11-12 11:49 | Outpatient (RCR) | payer MEDICARE, OTHER ==
[2022-10-22 13:29] LABS: HEMOGLOBIN 11.5 g/dL (11.5-16.0)
[2022-10-22 13:30] LABS: MEAN PLATELET VOLUME 9.7 fL (9.0-12.2); WHITE BLOOD COUNT 6.9 10^3/uL (4.3-11.0)
[2022-10-22 14:54] VITALS: BP 120/68
[2022-11-05 10:30] VITALS: BP 115/66
[2022-11-05 10:36] LABS: HEMOGLOBIN 8.9 g/dL (11.5-16.0); WHITE BLOOD COUNT 5.9 10^3/uL (4.3-11.0)
[2022-11-05 10:38] LABS: MEAN PLATELET VOLUME 9.7 fL (9.0-12.2)
[2022-11-05] MEDS: EPOETIN ALFA EPBX 20000 UNIT/ML SC SCH (10:57)
[2022-11-12 12:00] VITALS: BP 115/66
[2022-11-12 12:41] VITALS: BP 115/66
[2022-11-12] MEDS: EPOETIN ALFA EPBX 20000 UNIT/ML SC SCH (12:41)
== END 2022-11-16 | disposition home or self-care (01) ==
LOC: SDC 11:49
PROVIDERS: ATTEND Physician Assistant Medical
DX: N18.4 Chronic kidney disease, stage 4 (severe) (principal); D64.9 Anemia, unspecified
CPT/HCPCS: 36415; 36591; 85027; 96372

== ENCOUNTER 2022-12-03 11:57 | Outpatient (RCR) | payer MEDICARE, OTHER ==
[2022-11-19 12:31] VITALS: BP 116/63
[2022-11-19 12:33] LABS: HEMATOCRIT 28 % (35-52); HEMOGLOBIN 9.2 g/dL (11.5-16.0); MEAN CORPUSCULAR HEMOGLOBIN 31 pg (25-34); MEAN CORPUSCULAR HGB CONC 32 g/dL (32-36); MEAN CORPUSCULAR VOLUME 96 fL (80-99); MEAN PLATELET VOLUME 10.4 fL (9.0-12.2); WHITE BLOOD COUNT 4.6 10^3/uL (4.3-11.0)
[2022-11-19 12:35] LABS: PLATELET COUNT 59 10^3/uL (130-400)
[2022-11-19] MEDS: EPOETIN ALFA EPBX 20000 UNIT/ML SC SCH (13:06)
[2022-11-26 11:40] VITALS: BP 110/64
[2022-11-26 12:16] LABS: BASOPHILS % (AUTO) 1 % (0-10); EOSINOPHILS # (AUTO) 0.3 10^3/uL (0.0-0.3); EOSINOPHILS % (AUTO) 6 % (0-10); HEMATOCRIT 31 % (35-52); HEMOGLOBIN 9.8 g/dL (11.5-16.0); LYMPHOCYTES # (AUTO) 1.5 10^3/uL (1.0-4.0); LYMPHOCYTES % (AUTO) 33 % (12-44); MEAN CORPUSCULAR HEMOGLOBIN 31 pg (25-34); MEAN CORPUSCULAR HGB CONC 32 g/dL (32-36); MEAN CORPUSCULAR VOLUME 97 fL (80-99); MEAN PLATELET VOLUME 9.7 fL (9.0-12.2); MONOCYTES # (AUTO) 0.4 10^3/uL (0.0-1.0); MONOCYTES % (AUTO) 9 % (0-12); NEUTROPHILS # (AUTO) 2.4 10^3/uL (1.8-7.8); NEUTROPHILS % (AUTO) 51 % (42-75); PLATELET COUNT 67 10^3/uL (130-400); WHITE BLOOD COUNT 4.7 10^3/uL (4.3-11.0)
[2022-11-26] MEDS: EPOETIN ALFA EPBX 20000 UNIT/ML SC SCH (12:41)
[~2022-12-03] VITALS: Wt 87.3 kg
[2022-12-03 11:25] VITALS: BP 122/66
[2022-12-03] MEDS: EPOETIN ALFA EPBX 20000 UNIT/ML SC SCH (11:59)
== END 2022-12-14 | disposition home or self-care (01) ==
LOC: SDC 11:57
PROVIDERS: ATTEND Physician Assistant Medical
DX: N18.4 Chronic kidney disease, stage 4 (severe) (principal); D64.9 Anemia, unspecified
CPT/HCPCS: 36415; 36591; 85025; 85027; 96372

== ENCOUNTER → 2022-12-06 | Outpatient (CLI) | payer MEDICARE, OTHER ==
[2022-12-06 16:45] LABS: HEMOGLOBIN 10.7 g/dL (11.5-16.0)
[2022-12-06 16:46] LABS: BASOPHILS % (AUTO) 1 % (0-10); EOSINOPHILS # (AUTO) 0.4 10^3/uL (0.0-0.3); EOSINOPHILS % (AUTO) 6 % (0-10); HEMATOCRIT 33 % (35-52); LYMPHOCYTES # (AUTO) 2.6 10^3/uL (1.0-4.0); LYMPHOCYTES % (AUTO) 40 % (12-44); MEAN CORPUSCULAR HEMOGLOBIN 31 pg (25-34); MEAN CORPUSCULAR HGB CONC 33 g/dL (32-36); MEAN CORPUSCULAR VOLUME 95 fL (80-99); MEAN PLATELET VOLUME 10.3 fL (9.0-12.2); MONOCYTES # (AUTO) 0.6 10^3/uL (0.0-1.0); MONOCYTES % (AUTO) 9 % (0-12); NEUTROPHILS # (AUTO) 2.8 10^3/uL (1.8-7.8); NEUTROPHILS % (AUTO) 43 % (42-75); PLATELET COUNT 81 10^3/uL (130-400); WHITE BLOOD COUNT 6.5 10^3/uL (4.3-11.0)
[2022-12-06 17:04] LABS: BILIRUBIN,TOTAL 0.5 MG/DL (0.1-1.0); CALCIUM 9.6 MG/DL (8.5-10.1); CREATININE SERUM 1.81 MG/DL (0.60-1.30); POTASSIUM 4.1 MMOL/L (3.6-5.0); TOTAL PROTEIN 6.3 GM/DL (6.4-8.2)
== END ==
LOC: LAB 16:28
DX: D64.9 Anemia, unspecified (principal)
CPT/HCPCS: 36415; 80053; 85025